=== PATIENT | male | born 1940 | race Caucasian/White ===

== ENCOUNTER 2016-07-02 17:45 | Inpatient (IN) | payer OTHER, BC ==
[~2016-07-02] VITALS: Ht 175.3 cm; Wt 83.7 kg
[2016-07-02 18:45] VITALS: BP 180/86
[2016-07-02 19:27] LABS: HEMATOCRIT 27.7 % (38.0-50.0); MCH 35.4 PG (29.0-34.0); MCHC 33.2 G/DL (30.0-36.0); MCV 106.5 FL (86-99); MEAN PLAT.VOLUME 10.8 uM^3 (9.0-12.4); PLATELET COUNT 236 K/uL (156-360); RBC DIS.WIDTH-CV 17.9 % (11.8-14.6); WHITE BLOOD COUNT 9.7 K/uL (4.1-10.2)
[2016-07-02 19:37] LABS: INTER. NORMALIZED RATIO 1.2; PROTHROMBIN TIME 12.1 (9.2-11.2)
[2016-07-02 19:57] LABS: CHLORIDE 111 mEq/L (99-109); POTASSIUM 3.9 mEq/L (3.7-5.4); SODIUM 140 mEq/L (136-147)
[2016-07-02 19:59] LABS: GLUCOSE 99 mg/dL (70-99)
[2016-07-02 20:01] VITALS: BP 167/73
[2016-07-02 20:01] LABS: ANION GAP 8 MEQ/L (2-14)
[2016-07-02 20:03] LABS: GFR ESTIMATE (CALCULATED) > 59 mL/min/
[2016-07-02 20:04] LABS: UREA NITROGEN (BUN) 15 mg/dL (9-23)
[2016-07-02 22:17] VITALS: BP 141/64
[2016-07-02 22:31] LABS: TYPE OF FLUID THORACENTESIS
[2016-07-02] MEDS ORDERED: LABETALOL HCL100 MG PO (22:32)
[2016-07-02] MEDS ORDERED: LISINOPRIL10 MG PO (22:33)
[2016-07-02 22:40] LABS: GLUCOSE 109 mg/dL (70-99)
[2016-07-02] MEDS ORDERED: FUROSEMIDE40 MG PO (22:44)
[2016-07-02] MEDS ORDERED: MICROZIDE12.5 M1 PO (22:45)
[2016-07-02] MEDS ORDERED: AMLOD-VALSA-HC1 EAC2 PO (22:46)
[2016-07-02 22:47] LABS: BODY FLUID RBC'S 3000 /MM^3 (0-100); BODY FLUID WBC'S 314 /MM^3 (0-500)
[2016-07-02] MEDS ORDERED: ENOXAPARIN120 MG/0.8 SC (22:47)
[2016-07-02] MEDS ORDERED: STIVARGA40 MG PO (22:49)
[2016-07-02] MEDS ORDERED: PRILOSEC20 MG PO (22:51)
[2016-07-02] MEDS ORDERED: LORATADINE10 M2 PO (22:51)
[2016-07-02] MEDS ORDERED: MULTI-DAY VITA1 EACH PO (22:52)
[2016-07-02] MEDS ORDERED: MAGNESIUM250 MG PO (22:52)
[2016-07-02] MEDS ORDERED: CATAPRES0.1 MG PO (22:57)
[2016-07-02 23:21] LABS: BODY FLUID PROTEIN 3.3 G/DL
[2016-07-02 23:33] LABS: BODY FLUID EOSINOPHILS 0 % (0-25); MONO RAW COUNT 93; MONONUCLEAR WBC'S 93 %; POLY RAW COUNT 7; POLYNUCLEAR WBC'S 7 % (0-25)
[2016-07-02 23:39] LABS: BODY FLUID LDH 109 IU/L
[2016-07-03] VITALS (8 sets, daily range): BP systolic 112–168; BP diastolic 51–73
[2016-07-03 00:51] LABS: LACTATE DEHYDROGENASE 290 IU/L (20-246)
[2016-07-03 07:25] LABS: HEMATOCRIT 29.1 % (38.0-50.0); MCH 35.2 PG (29.0-34.0); MCHC 32.6 G/DL (30.0-36.0); MCV 107.8 FL (86-99); MEAN PLAT.VOLUME 11.2 uM^3 (9.0-12.4); NRBC (%) 2.6 /100 WBC (0-0); PLATELET COUNT 229 K/uL (156-360); RBC DIS.WIDTH-CV 18.3 % (11.8-14.6); RBC DIS.WIDTH-SD 71.8 % (39-53)
[2016-07-03 07:42] LABS: ALKALINE PHOSPHATASE 71 IU/L (3-129); ANION GAP 5 MEQ/L (2-14); CHLORIDE 107 MEQ/L (99-109); GFR ESTIMATE (CALCULATED) > 59 mL/min/; GLUCOSE 121 mg/dL (70-99); POTASSIUM 4.4 MEQ/L (3.7-5.4); SAMPLE HEMOLYSIS CHECK 0; SAMPLE ICTERIC CHECK 0; SAMPLE LIPEMIA CHECK 0; SODIUM 138 MEQ/L (136-147); TOTAL BILIRUBIN 1.2 MG/DL (0.0-1.0); UREA NITROGEN (BUN) 19 mg/dL (9-23)
[2016-07-04 04:16] VITALS: BP 137/63
[2016-07-04 07:03] LABS: BASOPHIL COUNT 0.1 K/uL (0-0.1); EOSINOPHIL (%) 0.8 % (0-5); EOSINOPHIL COUNT 0.1 K/uL (0-0.3); HEMATOCRIT 26.1 % (38.0-50.0); IMMATURE GRANULOCYTE (%) 0.4 % (0.0-0.7); IMMATURE GRANULOCYTE COUNT 0.1 K/uL; LYMPHOCYTE COUNT 1.7 K/uL (1.0-2.8); MCH 35.8 PG (29.0-34.0); MCV 108.8 FL (86-99); MEAN PLAT.VOLUME 11.2 uM^3 (9.0-12.4); MONOCYTE COUNT 1.8 K/uL (0-0.8); NEUTROPHIL (%) 68.6 % (45-76); NRBC (%) 3.8 /100 WBC (0-0); PLATELET COUNT 222 K/uL (156-360); RBC DIS.WIDTH-CV 18.4 % (11.8-14.6); RBC DIS.WIDTH-SD 73.5 % (39-53); WHITE BLOOD COUNT 11.7 K/uL (4.1-10.2)
[2016-07-04 07:36] LABS: ANION GAP 8 MEQ/L (2-14); CHLORIDE 105 MEQ/L (99-109); GFR ESTIMATE (CALCULATED) > 59 mL/min/; GLUCOSE 101 mg/dL (70-99); POTASSIUM 3.7 MEQ/L (3.7-5.4); SAMPLE HEMOLYSIS CHECK 0; SAMPLE ICTERIC CHECK 0; SAMPLE LIPEMIA CHECK 0; SODIUM 135 MEQ/L (136-147)
[2016-07-04 07:38] LABS: UREA NITROGEN (BUN) 29 mg/dL (9-23)
[2016-07-04 08:00] VITALS: BP 120/58
[2016-07-04 11:42] VITALS: BP 113/57
[2016-07-04 15:31] VITALS: BP 138/64
[2016-07-04 21:03] VITALS: BP 140/66
[2016-07-04 23:22] VITALS: BP 118/55
[2016-07-05 07:14] VITALS: BP 105/53
[2016-07-05 07:27] LABS: ANION GAP 8 MEQ/L (2-14); CHLORIDE 106 MEQ/L (99-109); GFR ESTIMATE (CALCULATED) > 59 mL/min/; GLUCOSE 94 mg/dL (70-99); POTASSIUM 3.9 MEQ/L (3.7-5.4); SAMPLE HEMOLYSIS CHECK 0; SAMPLE ICTERIC CHECK 0; SAMPLE LIPEMIA CHECK 0; SODIUM 136 MEQ/L (136-147); UREA NITROGEN (BUN) 30 mg/dL (9-23)
[2016-07-05 07:40] LABS: HEMATOCRIT 25.8 % (38.0-50.0); MCH 35.4 PG (29.0-34.0); MCHC 32.9 G/DL (30.0-36.0); MCV 107.5 FL (86-99); NRBC (%) 6.8 /100 WBC (0-0); PLATELET COUNT 225 K/uL (156-360)
[2016-07-05 07:57] LABS: WHITE BLOOD COUNT 6.6 K/uL (4.1-10.2)
[2016-07-05 08:21] LABS: ANISOCYTOSIS 1+; BAND NEUTROPHILS 6.1 % (0-8.0); BURR CELLS 1+; EOSINOPHIL ABS CT 0.1; INSTRUMENT ABS NEUTROPHIL CT 2.7 K/uL; LYMPHOCYTES 10.1 % (15.0-45.0); MACROCYTES 1+; NUCLEATED RBC'S 19.2; PLAT.SUFFICIENCY ADEQUATE; POIKILOCYTOSIS 2+; POLYCHROMASIA 1+; SEG.NEUTROPHILS 69.7 % (46.0-76.0)
[2016-07-05 11:24] VITALS: BP 137/62
[2016-07-05 13:23] LABS: HEMATOCRIT 27.8 % (38.0-50.0); MCH 35.5 PG (29.0-34.0); MCHC 32.7 G/DL (30.0-36.0); MCV 108.6 FL (86-99); NRBC (%) 5.8 /100 WBC (0-0); PLATELET COUNT 234 K/uL (156-360); RBC DIS.WIDTH-CV 18.1 % (11.8-14.6); RBC DIS.WIDTH-SD 71.9 % (39-53); RED BLOOD COUNT 2.56 M/uL (4.00-5.50); WHITE BLOOD COUNT 6.8 K/uL (4.1-10.2)
[2016-07-05 16:12] VITALS: BP 142/66
[2016-07-05 19:23] VITALS: BP 169/74
[2016-07-05 23:50] VITALS: BP 117/56
[2016-07-06 03:39] VITALS: BP 122/68
[2016-07-06 07:02] VITALS: BP 150/67
[2016-07-06 11:36] VITALS: BP 128/60
[2016-07-06 15:18] VITALS: BP 157/72
[2016-07-06 20:26] VITALS: BP 140/60
[2016-07-07 00:25] VITALS: BP 146/68
[2016-07-07 04:46] VITALS: BP 134/57
[2016-07-07 07:00] VITALS: BP 167/71
[2016-07-07] MEDS ORDERED: VALSARTAN160 MG PO (11:49)
[2016-07-07] MEDS ORDERED: COMBIVENT RESPIM4 GM IH (11:51)
[2016-07-07] MEDS ORDERED: LEVAQUIN500 MG PO (11:51)
== END 2016-07-07 12:42 | disposition home or self-care (01) | DRG 186 ==
LOC: EME 17:45 → EDSTATUS 18:33 → 2EAST 18:34
PROVIDERS: Family Medicine Sports Medicine
PROC: 0W9930Z Drainage of Right Pleural Cavity with Drainage Device, Percutaneous Approach (ICD-10-PCS; principal; 2016-07-02)
DX: J90 Pleural effusion, not elsewhere classified (principal); J18.9 Pneumonia, unspecified organism; I25.10 Atherosclerotic heart disease of native coronary artery without angina pectoris; I10 Essential (primary) hypertension; D58.0 Hereditary spherocytosis; J44.9 Chronic obstructive pulmonary disease, unspecified; E78.5 Hyperlipidemia, unspecified; G47.33 Obstructive sleep apnea (adult) (pediatric); K21.9 Gastro-esophageal reflux disease without esophagitis; Z90.81 Acquired absence of spleen; Z90.49 Acquired absence of other specified parts of digestive tract; Z85.05 Personal history of malignant neoplasm of liver; Z79.01 Long term (current) use of anticoagulants; Z86.711 Personal history of pulmonary embolism; Z87.891 Personal history of nicotine dependence; Z82.49 Family history of ischemic heart disease and other diseases of the circulatory system; Z80.8 Family history of malignant neoplasm of other organs or systems; Z08 Encounter for follow-up examination after completed treatment for malignant neoplasm; Z09 Encounter for follow-up examination after completed treatment for conditions other than malignant neoplasm
CPT/HCPCS: 71010; 71020; 71275; 80048; 80053; 81003; 82945; 82947 91; 83615; 83615 91; 83986 90; 84155; 84157; 85025; 85027; 85610; 85730; 86900; 86901; 87040; 87070; 87075; 87116; 87205; 87206; 89051; 94010; 94640; 94640 76; 94799; 99202; 99281; 99284; J0696; J1650; J7050